=== PATIENT | female | born 1990 | race Caucasian/White ===

== ENCOUNTER → 2018-06-28 13:50 | Outpatient (CLI) | payer MEDICAID ==
[~2018-06-28 13:50] MED LIST: IBUPROFEN600 MG PO; PERCOCET 5/3251 TA1 PO; PRENATAL COMPLE1 TAB PO
[2018-06-28 15:42] LABS: BASOPHILS 0.1 % (0-2); EOSINOPHILS 0.2 % (0-7); HEMATOCRIT 35.5 % (36.0-48.0); HEMOGLOBIN 12.1 g/dL (12-16); IMMATURE GRANULOCYTES 0.3 % (0-5); MCH 30.2 pg (26.0-34.0); MCHC 34.1 g/dL (31.0-37.0); MCV 88.5 fL (80.0-100.0); MEAN PLATELET VOLUME 10.4 fL (7.4-10.4); MONOCYTES 7.9 % (2-11); NEUTROPHILS 82.5 % (40-80); RBC 4.01 10x6/uL (4.00-5.40); RDW 13.9 % (11.5-14.5); WBC 8.8 10x3/uL (4.8-10.8)
[2018-06-28 15:47] LABS: PLATELET COUNT 191 10x3/uL (130-400)
[2018-06-28 15:55] LABS: ALBUMIN 2.6 g/dL (3.4-5.0); ALKALINE PHOSPHATASE 75 U/L (46-116); ALT (SGPT) 16 U/L (10-68); BILIRUBIN - DIRECT 0.11 mg/dL (0.00-0.30); BILIRUBIN - INDIRECT 0.17 mg/dL (0.00-1.00); BILIRUBIN - TOTAL 0.28 mg/dL (0.2-1.3); CALC OSMOLALITY 271 mosm/kg (275-300); CALCIUM 8.7 mg/dL (8.5-10.1); CARBON DIOXIDE 24.9 mmol/L (21.0-32.0); CHLORIDE - SERUM 102 mmol/L (98-107); CREATININE - SERUM 0.6 mg/dL (0.6-1.3); POTASSIUM - SERUM 3.7 mmol/L (3.5-5.1); PROTEIN - SERUM 6.4 g/dL (6.4-8.2); SODIUM 138 mmol/L (136-145); UREA NITROGEN 8 mg/dL (7-18); eGFR NON AFRICAN AMERICAN > 90 mL/min (90-120)
[2018-06-28 15:58] LABS: GLUCOSE 68 mg/dL (74-106)
== END | disposition home or self-care (01) ==
LOC: D.LDO 13:50
PROVIDERS: Obstetrics & Gynecology
DX: O26.892 Other specified pregnancy related conditions, second trimester (principal); Z3A.23 23 weeks gestation of pregnancy

== ENCOUNTER 2018-09-28 05:29 | Inpatient (IN) | payer MEDICAID ==
[~2018-09-28] VITALS: Ht 157.5 cm; Wt 82.6 kg
[2018-09-28 05:45] VITALS: BP 123/85; Ht 157.5 cm; Wt 82.6 kg
[2018-09-28 06:18] LABS: HEMATOCRIT 30.4 % (36.0-48.0); HEMOGLOBIN 10.2 g/dL (12-16); MCHC 33.6 g/dL (31.0-37.0); MCV 86.4 fL (80.0-100.0); MEAN PLATELET VOLUME 12.9 fL (7.4-10.4); RBC 3.52 10x6/uL (4.00-5.40); RDW 12.9 % (11.5-14.5); WBC 11.4 10x3/uL (4.8-10.8)
[2018-09-28 09:42] VITALS: BP 120/62
[2018-09-28 15:24] LABS: BASOPHILS 0.1 % (0-2); EOSINOPHILS 0 % (0-7); HEMATOCRIT 36.4 % (36.0-48.0); IMMATURE GRANULOCYTES 0.3 % (0-5); LYMPHOCYTES 8.1 % (15-50); MCH 29.2 pg (26.0-34.0); MCHC 34.1 g/dL (31.0-37.0); MCV 85.8 fL (80.0-100.0); MEAN PLATELET VOLUME 12.7 fL (7.4-10.4); MONOCYTES 6.5 % (2-11); RDW 13.6 % (11.5-14.5)
[2018-09-28 15:25] LABS: HEMOGLOBIN 12.4 g/dL (12-16); PLATELET COUNT 131 10x3/uL (130-400); RBC 4.24 10x6/uL (4.00-5.40); WBC 16.8 10x3/uL (4.8-10.8)
[2018-09-28 15:47] VITALS: BP 117/69
[2018-09-28 19:34] VITALS: BP 128/81
[2018-09-29 05:10] VITALS: BP 122/74
[2018-09-29 07:06] LABS: BASOPHILS 0.1 % (0-2); EOSINOPHILS 0.2 % (0-7); HEMATOCRIT 34.8 % (36.0-48.0); HEMOGLOBIN 11.7 g/dL (12-16); IMMATURE GRANULOCYTES 0.2 % (0-5); LYMPHOCYTES 8.8 % (15-50); MCH 29.1 pg (26.0-34.0); MCHC 33.6 g/dL (31.0-37.0); MCV 86.6 fL (80.0-100.0); MEAN PLATELET VOLUME 11.8 fL (7.4-10.4); MONOCYTES 7.2 % (2-11); NEUTROPHILS 83.5 % (40-80); PLATELET COUNT 120 10x3/uL (130-400); RBC 4.02 10x6/uL (4.00-5.40); RDW 13.5 % (11.5-14.5)
[2018-09-29 07:31] LABS: RAPID PLASMA REAGIN Non Reactive (Non Reactive)
[2018-09-29 08:11] LABS: WBC 11.9 10x3/uL (4.8-10.8)
[2018-09-29 19:33] VITALS: BP 138/90
[2018-09-30 04:16] VITALS: BP 130/80
[2018-09-30] MEDS ORDERED: HYDROCODON-ACE1 EA10 PO (12:14)
[2018-09-30] MEDS ORDERED: IBUPROFEN600 MG PO (12:15)
== END 2018-09-30 13:00 | disposition home or self-care (01) | DRG 784 ==
LOC: D.LD 05:29
PROVIDERS: ADMIT Obstetrics & Gynecology; ATTEND Obstetrics & Gynecology
PROC: 10D00Z1 Extraction of Products of Conception, Low, Open Approach (ICD-10-PCS; principal; 2018-09-28 07:30)
PROC: 0UT70ZZ Resection of Bilateral Fallopian Tubes, Open Approach (ICD-10-PCS; 2018-09-28 07:30)
DX: O32.8XX0 Maternal care for other malpresentation of fetus, not applicable or unspecified (principal); O44.23 Partial placenta previa NOS or without hemorrhage, third trimester; O98.32 Other infections with a predominantly sexual mode of transmission complicating childbirth; Z3A.37 37 weeks gestation of pregnancy; Z37.0 Single live birth; A63.0 Anogenital (venereal) warts